=== PATIENT | female | born 1995 | race African-American/Black ===

== ENCOUNTER 2023-12-20 14:05 | Emergency (ER) | payer SELFPAY ==
[2023-12-20 14:42] VITALS: BP 150/83; PULSE 110; RESP 18; TEMP 99.2; BMI 35.2
== END 2023-12-20 18:14 | disposition home or self-care (01) ==
LOC: JERFT 14:05
DX: J02.9 Acute pharyngitis, unspecified (principal); R09.89 Other specified symptoms and signs involving the circulatory and respiratory systems; R13.10 Dysphagia, unspecified; J06.9 Acute upper respiratory infection, unspecified; R00.0 Tachycardia, unspecified; Z20.822 Contact with and (suspected) exposure to COVID-19
CPT/HCPCS: 0241U-QW; 87651; 99283-25